=== PATIENT | female | born 1980 | race Caucasian/White ===

== ENCOUNTER 2017-01-15 19:25 | Emergency (ER) | payer SELFPAY ==
[2017-01-15 19:33] VITALS: BP 120/65; BMI 19.4
[2017-01-15 20:17] LABS: BILIRUBIN,URINE NEGATIVE (NEGATIVE); BLOOD/HEMOGLOBIN,URINE 2+ (NEGATIVE); GLUCOSE, URINE NEGATIVE (NEGATIVE); KETONES,URINE NEGATIVE (NEGATIVE); LEUKOCYTE ESTERASE ,URINE NEGATIVE (NEGATIVE); NITRITES,URINE NEGATIVE (NEGATIVE); PROTEIN,URINE 3+ (NEGATIVE); UROBILINOGEN,URINE NORMAL (NORMAL)
--- NOTE | 2017-01-15 20:21 | DR.GENAD ---
HPI - PCP Primary Care Physician: DESMOND ROJAS - HPI Comment HPI Comment: WORSE TODAY. ON ANTIBIOTIC FOR UTI. - Complaint/Symptoms Chief Complaint Doctors Comments: RIGHT FLANK PAIN TIMES 5 DAYS. Chief Complaint:: PAIN IN RIGHT FLANK Self Treatment fo Chief Complaint: WENT TO MD ON FRIDAY NOT ANY. BETTER - Nurses notes reviewed Nurses Notes Review: Yes - Source History Provided: Patient - Mode of Arrival Mode of Arrival: Ambulatory - Timing Onset of Chief Complaint: 01/10/17 Came on: Suddenly - Duration Duration: Constant Duration: Days - Severity Severity: Moderate PMH - PMH Past Medical History: Yes Past Medical History: SVT Past Medical History Comment: TACHYCARDIA Past Surgical History: Yes Past Surgical History Comment: ABLATION - Family History History of Family Medical Conditions: Yes Family Medical History Comment: CVA - Social History Does patient currently use any type of tobacco product: Yes Have you used tobacco products in the last 12 months: Yes Type of Tobacco Use: Cigarettes Does any household member use tobacco: Yes Alcohol Use: None Do you use any recreational Drugs:: Yes Lives With: Spouse Lives Where: Home - infectious screening In the last 2 months have you had wt loss of >10#?: NO Have you had fever, night sweats or hemotysis?: No Have you traveled outside the country in the last 6 months?: No Isolation: Standard ROS - Review of Systems Constitutional: No Symptoms Reported Eyes: No Symptoms Reported ENTM: No Symptoms Reported Respiratoy: No Symptoms Reported Cardiovascular: No Symptoms Reported Gastrointestinal/Abdominal: No Symptoms Reported Genitourinary: No Symptoms Reported. negative: Dysuria, Frequency, Hematuria Neurological: No Symptoms Reported Musculoskeletal: Other (RIGHT FLANK PAIN) Integumentary: No Symptoms Reported Hematologic/Lymphatic: No Symptoms Reported Endocrine: No Symptoms Reported All Other Systems: Reviewed and Negative PE - Vital Signs Vitals: Temperature 98.4 F Pulse Rate 84 Respiratory Rate 20 Blood Pressure 120/65 O2 Sat by Pulse Oximetry 100 - General Limitations: No Limitations General Appearance: Alert - Head Head Exam: Normal Inspection - Eyes Eye exam: Normal Appearance - ENT ENT Exam: Normal External Ear Exam External Ear Exam: Normal External Inspection TM/Canal Exam: Bilateral Normal Nose Exam: Normal Nose Exam Mouth Exam: Normal Inspection Throat Exam: Normal Inspection - Neck Neck Exam: Trachea Midline - Chest Chest Inspection: Symmetric Chest Wall Rise - Respiratory Respiratory Exam: Normal Lung Sounds Bilat Respiratory Exam: Bilateral Clear to Auscultation - Cardiovascular Cardiovascular Exam: Regular Rate, Normal Rhythm, Normal Heart Sounds - Abdominal Exam Abdominal Exam: Normal Bowel Sounds, Soft. negative: Tenderness - Extremities Extremities Exam: Normal Inspection - Back Back Exam: (R) CVA Tenderness - Neurologic Neurological Exam: Alert, Oriented X3 - Psychiatric Psychiatric Exam: Normal Affect, Normal Mood - Skin Skin Exam: Normal Color MDM - Additional Information Additional Information Obtained From: Family - Differential Diagnosis Differential Diagnosis: RT FLANK PAIN, UTI, PYELONEPHRITIS, KIDNEY STONE, Course - Treatment Treatment: SEE ORDERS. - Education/Counseling Education/Counseling: Patient, Family, Education Educated On: Treatment, Diagnosis, Needs for Follow Up ROR - Labs Reviewed Laboratory Results Reviewed?: Yes Laboratory: Specimen Type Clean catch urine 01/15/17 20:00 Urine Color Yellow (YELLOW) 01/15/17 20:00 Urine Appearance Clear (CLEAR) 01/15/17 20:00 Urine pH 5.0 (5.0 - 8.0) 01/15/17 20:00 Ur Specific Candor 1.010 (1.000-1.030) 01/15/17 20:00 Urine Protein 3+ (NEGATIVE) 01/15/17 20:00 Urine Glucose (UA) Negative (NEGATIVE) 01/15/17 20:00 Urine Ketones Negative (NEGATIVE) 01/15/17 20:00 Urine Occult Blood 2+ (NEGATIVE) 01/15/17 20:00 Urine Nitrite Negative (NEGATIVE) 01/15/17 20:00 Urine Bilirubin Negative (NEGATIVE) 01/15/17 20:00 Urine Urobilinogen Normal (NORMAL) 01/15/17 20:00 Ur Leukocyte Esterase Negative (NEGATIVE) 01/15/17 20:00 Urine RBC 0-3 /HPF (NEGATIVE) 01/15/17 20:00 Urine WBC 0-3 /HPF (NEGATIVE) 01/15/17 20:00 Ur Squamous Epith Cells Moderate /HPF (NEGATIVE) 01/15/17 20:00 Urine Bacteria Trace /HPF (NEGATIVE) 01/15/17 20:00 Urine Mucus Few /HPF (NEGATIVE) 01/15/17 20:00 Ur Culture Indicated? No/not indicated 01/15/17 20:00 - XRAY XRAY Interpreted by: Radiologist XRAY Findings: REPORT DISCUSS WITH PATIENT AND FAMILY. - Diagnosis Discharge Problem: Right flank pain - Discharge Plan Disposition: 01 HOME, SELF-CARE Condition: Stable Prescriptions: Acetaminophen with Codeine [Tylenol/Codeine #3 300-30 mg] 1 tab PO Q4-6H PRN # 15 tab PRN Reason: Pain Cyclobenzaprine HCl [FLEXERIL 10 MG *] 10 mg PO TID PRN #20 tab PRN Reason: Ibuprofen [MOTRIN TAB 600 MG *] 600 mg PO TID PRN #20 tab PRN Reason: Pain/Inflammation - Follow ups/Referrals Follow ups/Referrals: DESMOND ROJAS [Primary Care Provider] - 01/17/17 - Instructions Instructions: Back Pain, Adult, [id number] Additional Instructions: RETURN TO ED IF WORSE.
[2017-01-15 20:29] LABS: APPEARANCE,URINE CLEAR (CLEAR); BACTERIA,URINE TRACE /HPF (NEGATIVE); COLOR,URINE YELLOW (YELLOW); MUCUS,URINE FEW /HPF (NEGATIVE); RBC,URINE 0-3 /HPF (NEGATIVE); SQUAMOUS EPITHELIAL CELL,UR MODERATE /HPF (NEGATIVE)
[2017-01-15] MEDS ORDERED: TORADOL 60 MG VIAL IM ONE (21:14)
[2017-01-15] MEDS ORDERED: TORADOL 60 MG VIAL ONE (21:15)
--- NOTE | 2017-01-15 21:24 | CT ---
CT abdomen and pelvis without contrast Indication: Right flank pain Comparison: None Technique: CT images of the abdomen and pelvis were obtained without contrast. Automatic exposure con trol was utilized. Findings: No acute skeletal abnormality. The lung bases are clear. Within the limitations of a noncontrast study, the liver, gallbladder, spleen, stomach, duodenum, dawson creas, and adrenals are normal. There is minimal pelviectasis of both kidneys, without overt hydronep hrosis. No renal or ureteral stones are identified. No significant bowel thickening or dilatation of the lower GI tract is observed. The uterus and ovaries are present. An intrauterine device appears ap propriate position. Small amount of pelvic free fluid is likely physiologic. The urinary bladder and rectum are unremarkable. No adenopathy is identified within noncontrast limitations. Impression: No etiology for patient's symptoms identified. Specifically, no evidence for urinary stone or obstruc tion. Reported By:
== END 2017-01-15 22:21 | disposition home or self-care (01) ==
LOC: ER 19:37
DX: R10.84 Generalized abdominal pain (principal)
CPT/HCPCS: 74176; 81001; 96372; 99282; 99283; 99284; J1885